=== PATIENT | male | born 1955 | race Caucasian/White ===

== ENCOUNTER → 2016-10-26 | Outpatient (CLI) | payer OTHER ==
[2016-10-26 16:40] LABS: THYROID STIMULATING HORMONE 1.84 uIu/ml (0.300-4.500)
== END | disposition home or self-care (01) ==
LOC: C.LAB1850 15:01
PROVIDERS: ATTEND Physician Assistant
DX: E05.90 Thyrotoxicosis, unspecified without thyrotoxic crisis or storm (principal)

== ENCOUNTER → 2017-01-06 | Outpatient (CLI) | payer OTHER ==
[2017-01-06 16:54] LABS: THYROID STIMULATING HORMONE 1.92 uIu/ml (0.300-4.500)
== END | disposition home or self-care (01) ==
LOC: C.LABPBG 14:51
PROVIDERS: ATTEND Physician Assistant
DX: E05.90 Thyrotoxicosis, unspecified without thyrotoxic crisis or storm (principal)

== ENCOUNTER → 2017-02-17 | Outpatient (CLI) | payer OTHER ==
[2017-02-17 17:30] LABS: THYROID STIMULATING HORMONE 0.096 uIu/ml (0.300-4.500)
== END | disposition home or self-care (01) ==
LOC: C.LABPBG 13:51
PROVIDERS: ATTEND Physician Assistant
DX: E05.90 Thyrotoxicosis, unspecified without thyrotoxic crisis or storm (principal)

== ENCOUNTER → 2017-03-07 | Outpatient (CLI) | payer OTHER ==
[2017-03-07 18:31] LABS: THYROID STIMULATING HORMONE 0.026 uIu/ml (0.300-4.500)
== END | disposition home or self-care (01) ==
LOC: C.LABPBG 14:03
PROVIDERS: ATTEND Internal Medicine
DX: Z11.59 Encounter for screening for other viral diseases (principal); E05.90 Thyrotoxicosis, unspecified without thyrotoxic crisis or storm

== ENCOUNTER → 2017-04-07 | Outpatient (CLI) | payer OTHER ==
[2017-04-07 17:45] LABS: THYROID STIMULATING HORMONE 0.203 uIu/ml (0.300-4.500)
== END | disposition home or self-care (01) ==
LOC: C.LABPBG 14:08
PROVIDERS: ATTEND Physician Assistant
DX: E05.90 Thyrotoxicosis, unspecified without thyrotoxic crisis or storm (principal)

== ENCOUNTER → 2017-04-25 | Outpatient (CLI) | payer OTHER ==
[2017-04-25 18:43] LABS: THYROID STIMULATING HORMONE 1.3 uIu/ml (0.300-4.500)
== END | disposition home or self-care (01) ==
LOC: C.LABPBG 13:55
PROVIDERS: ATTEND Physician Assistant
DX: E05.90 Thyrotoxicosis, unspecified without thyrotoxic crisis or storm (principal)

== ENCOUNTER → 2017-05-25 | Outpatient (CLI) | payer OTHER ==
[2017-05-25 18:05] LABS: THYROID STIMULATING HORMONE 6.94 uIu/ml (0.300-4.500)
== END | disposition home or self-care (01) ==
LOC: C.LABPBG 14:00
PROVIDERS: ATTEND Physician Assistant
DX: E05.90 Thyrotoxicosis, unspecified without thyrotoxic crisis or storm (principal)

== ENCOUNTER → 2017-06-20 | Outpatient (CLI) | payer OTHER ==
[2017-06-20 18:10] LABS: THYROID STIMULATING HORMONE 0.779 uIu/ml (0.300-4.500)
== END | disposition home or self-care (01) ==
LOC: C.LABPBG 13:55
PROVIDERS: ATTEND Physician Assistant
DX: E05.90 Thyrotoxicosis, unspecified without thyrotoxic crisis or storm (principal)

== ENCOUNTER → 2017-07-20 | Outpatient (CLI) | payer OTHER ==
[2017-07-20 17:55] LABS: THYROID STIMULATING HORMONE 0.076 uIu/ml (0.300-4.500)
== END | disposition home or self-care (01) ==
LOC: C.LABPBG 13:57
PROVIDERS: ATTEND Physician Assistant
DX: E05.90 Thyrotoxicosis, unspecified without thyrotoxic crisis or storm (principal)

== ENCOUNTER → 2017-08-25 | Outpatient (CLI) | payer OTHER | END | disposition home or self-care (01) | LOC: C.LABPBG 13:45 | PROVIDERS: ATTEND Physician Assistant | DX: E05.90 Thyrotoxicosis, unspecified without thyrotoxic crisis or storm (principal) ==

== ENCOUNTER → 2017-10-09 | Outpatient (CLI) | payer OTHER | END | disposition home or self-care (01) | LOC: C.LABPBG 13:58 | PROVIDERS: ATTEND Physician Assistant | DX: E05.00 Thyrotoxicosis with diffuse goiter without thyrotoxic crisis or storm (principal) ==

== ENCOUNTER → 2017-11-23 | Outpatient (CLI) | payer OTHER | END | disposition home or self-care (01) | LOC: C.LABPBG 14:10 | PROVIDERS: ATTEND Physician Assistant | DX: E05.00 Thyrotoxicosis with diffuse goiter without thyrotoxic crisis or storm (principal) ==

== ENCOUNTER 2024-01-15 11:44 | Inpatient (IN) ==
--- NOTE | 2024-01-15 11:57 | Emergency Department Note ---
Impression & Plan TIA (transient ischemic attack), Slurred speech, Blood glucose elevated ED Provider Note NAME: ALEENA MILLER AGE: 68 SEX: M : 1955 ARRIVES VIA: Ambulance INFORMANT: Patient ED PROVIDER(S): Karl Corrales DO CHIEF COMPLAINT: slurred speech HPI: This patient is a 68-year-old male who presents to the ER with a past medical history of a CVA affecting left side, Graves' disease and hyperthyroidism who presents to the ER for slurred speech and trouble swallowing which started around 1030 just after getting up. He denies any headache or change in vision. No chest pain or shortness of breath. No new weakness or numbness in the arms or legs. No dysuria urgency or frequency. He admits left arm and left leg weakness which is old and unchanged. Additional history obtained from EMS who is present at bedside who notes that his slurred speech improved significantly during transport. ADDITIONAL HISTORY OBTAINED: Additional history obtained from EMS who is present at bedside who notes that his slurred speech improved significantly during transport. Chronic Medical/Social Conditions Affecting Care: Per HPI PAST MEDICAL HISTORY:See Below PAST SURGICAL HISTORY:See Below FAMILY HISTORY:See Below SOCIAL HISTORY:See Below HOME MEDICATIONS:See Below ALLERGIES:See Below VITALS:See Below PHYSICAL EXAMINATION: GENERAL: Sitting up in bed, alert, well appearing, well nourished, no distress, non-toxic EYE EXAM: normal conjunctiva. PERRL and EOM's grossly intact. OROPHARYNX: no exudate, no erythema, lips, buccal mucosa, and tongue normal and mucous membranes are moist NECK: supple, no nuchal rigidity, no adenopathy, non-tender LUNGS: Clear to auscultation. Normal chest wall mechanics HEART: no murmurs, S1 normal and S2 normal ABDOMEN: abdomen soft, non-tender, normo-active bowel sounds, no masses, no rebound or guarding. BACK: Back is symmetrical on inspection and there is no deformity, no midline tenderness, no CVA tenderness. SKIN: no rashes and no bruising UPPER EXTREMITIES: upper extremities are grossly normal. LOWER EXTREMITIES: No pitting edema. NEURO EXAM: Normal sensorium, cranial nerves II-XII grossly intact, with slightly slurred speech. Weakness of the left upper and left lower extremity which is unchanged from old per patient. No focal weakness in the right upper or right lower extremity. MEDICAL DECISION MAKING: Patient is a 68-year-old male who presents ER for the above-stated complaint. Upon presentation he had slight slurring of his words. Stroke alert was called. I discussed with telestroke evaluate the patient at bedside. Initial blood pressure I do feel was due to poor positioning of the cough as the remainder of the time remained hypotensive. Labs show no significant leukocytosis or anemia. INR unremarkable. BMP with slightly elevated glucose at 157. LFTs bilirubin was unremarkable. Troponin elevated at 96. CTA of the head and neck show no acute pathology with exception of an old stroke. This was discussed with patient and telestroke. They believe with the symptoms improving significantly patient is not a TNK candidate. Did recommend Plavix but patient failed his swallow study due to slurred speech. He was given aspirin rectally. Discussed with the hospitalist and patient was admitted for further workup. Consults/Care Managements Discussions: Per MDM Triage Nursing notes reviewed. Limited review of prior medical records performed Vital Signs: reviewed and remarkable for HTN Differential diagnosis: Differential Diagnosis includes but is not limited to ischemic Stroke, hemorrhagic stroke, bells palsy, mass, neoplasm, migraine headache, seizure, subarachnoid hemorrhage, TIA, and transient global amnesia. ER treatment provided: See below Diagnostics interpreted by me include EKG and cardiac monitoring as listed below: -Cardiac Monitoring: An order was placed for continuous cardiac monitoring. The monitor shows a rate of 60 with sinus rhythm. -ECG: none -Laboratory studies:Interpreted by me as stated above in MDM and shown below. Imaging studies: Xrays: As interpreted by me: Portable AP upright 1 view of the chest shows no focal infiltrate CTs show: CT angios of the head and neck as described below Procedures:none Critical Care: None Past Med/Surg History Problem List (Updated 01/15/24 @ 14:40 by Karl Corrales DO) Blood glucose elevated (Acute) Slurred speech (Acute) TIA (transient ischemic attack) (Acute) Graves disease (Acute) Hyperthyroidism (Acute) Social History Smoking Status: Current every day smoker Feels Safe at Home: Yes Allergies Allergies Allergy/AdvReac Type Severity Reaction Status Date / Time No Known Allergies Allergy Verified 01/15/24 13:34 Home Meds Home Medications Medication Instructions Recorded Confirmed aspirin 325 mg tablet 325 mg PO QAM 10/23/20 01/15/24 citalopram 20 mg tablet 20 mg PO QAM 10/23/20 01/15/24 levetiracetam 500 mg tablet 500 mg PO QAM 10/23/20 01/15/24 lisinopril 5 mg tablet 5 mg PO QPM 10/23/20 01/15/24 metformin 500 mg tablet 500 mg PO QPM 10/23/20 01/15/24 multivit with min-folic 1 tab PO QAM 10/23/20 01/15/24 acid-lutein 400 mcg-250 mcg chewable tablet (Centrum Silver) simvastatin 40 mg tablet 40 mg PO HS 10/23/20 01/15/24 methimazole 5 mg tablet 15 mg PO QAM 01/15/24 01/15/24 Results & Data (ED) Vital Signs Vital Signs - 24 hr 01/15/24 11:50 01/15/24 12:21 01/15/24 12:22 Pulse Rate 62 58 L Pulse Rate [Apical] 61 Pulse Rate from SpO2 Sensor Respiratory Rate 18 18 Blood Pressure 88/61 L Blood Pressure [Right Arm] 187/87 H Blood Pressure Mean 70 Blood Pressure Mean [Right Arm] 120 Pulse Oximetry 97 97 Oxygen Delivery Method Room Air Sepsis Recent Fever Within 48 Hours No Sepsis New/Unexplained Change in Mental Status No Sepsis Action Taken by Nursing No Action Required 01/15/24 12:30 01/15/24 12:33 01/15/24 13:09 Pulse Rate 54 L 58 L Pulse Rate [Apical] Pulse Rate from SpO2 Sensor 54 L Respiratory Rate 20 18 Blood Pressure 194/88 H Blood Pressure [Right Arm] Blood Pressure Mean 132 Blood Pressure Mean [Right Arm] Pulse Oximetry 98 Oxygen Delivery Method Sepsis Recent Fever Within 48 Hours Sepsis New/Unexplained Change in Mental Status Sepsis Action Taken by Nursing 01/15/24 13:15 01/15/24 13:39 Pulse Rate 56 L Pulse Rate [Apical] Pulse Rate from SpO2 Sensor Respiratory Rate 26 H Blood Pressure 194/76 H Blood Pressure [Right Arm] Blood Pressure Mean 113 Blood Pressure Mean [Right Arm] Pulse Oximetry Oxygen Delivery Method Sepsis Recent Fever Within 48 Hours Sepsis New/Unexplained Change in Mental Status Sepsis Action Taken by Nursing Laboratory Data 01/15/24 12:08 01/15/24 12:08 Lab Results 01/15/24 01/15/24 Range/Units 12:08 12:13 WBC 9.49 (4.8-10.8) K/ul RBC 4.68 L (4.70-6.10) M/uL Hgb 13.4 L (14.0-18.0) g/dl Hct 40.8 L (42.0-52.0) % MCV 87.2 (80.0-100.0) fL MCH 28.6 (25.0-34.0) pg MCHC 32.8 (32.0-36.0) g/dL RDW Std Deviation 42.4 (36.4-46.3) fL RDW Coeff of Lesly 13.4 (11.5-14.5) % Plt Count 277 (130-400) K/uL MPV 11.8 (9.4-12.4) fL Immature Gran % (Auto) 0.3 % Neut % (Auto) 67.9 % Lymph % (Auto) 21.2 % Eagle % (Auto) 7.7 % Eos % (Auto) 2.1 % Baso % (Auto) 0.8 % Neut # (Auto) 6.44 (1.40-6.50) K/uL Lymph # (Auto) 2.01 (1.20-3.40) K/uL Eagle # (Auto) 0.73 H (0.11-0.59) K/uL Eos # (Auto) 0.20 (0.00-0.50) K/uL Baso # (Auto) 0.08 (0.00-0.20) K/uL Immature Gran # (Auto) 0.03 (0.01-0.20) K/uL PT 11.1 (9.0-12.0) Seconds INR 1.0 (0.9-1.1) APTT 28 (21-31) Seconds PTT Ratio 1.0 Sodium 134 L (136-145) mmol/L Potassium 4.4 (3.5-5.1) mmol/L Chloride 104 (98-107) mmol/L Carbon Dioxide 26 (21-32) mmol/L Anion Gap 4 (3-11) BUN 12 (6-23) mg/dl Creatinine 0.77 (0.6-1.4) mg/dl Est Cr Clr Drug Dosing 83.5 ml/min Est GFR ( Amer) 106.6 ml/min Est GFR (Non-Af Amer) 91.9 ml/min BUN/Creatinine Ratio 15.6 (10-20) Glucose 152 H (70-99(Fasting)) mg/dl POC Glucose 156 H (70-99) mg/dl Calcium 9.4 (8.6-10.3) mg/dl Magnesium 1.8 (1.7-2.4) mg/dl Total Bilirubin 0.4 (0.2-1.0) mg/dl AST 14 (13-39) U/L ALT 13 (7-52) U/L Alkaline Phosphatase 87 (34-104) U/L Troponin I High Sens 96.2 H* (0-20) pg/ml Total Protein 7.2 (6.0-8.3) gm/dl Albumin 3.4 (3.4-5.0) gm/dl Globulin 3.8 (2.5-4.0) gm/dl Albumin/Globulin Ratio 0.9 (0.9-2) Administered Medications Discontinued Medications Sodium Chloride (Nss) 1,000 mls @ 999 mls/hr IV .Q1H1M ONE Stop: 01/15/24 12:58 Last Admin: 01/15/24 12:24 Dose: 999 mls/hr Documented By: HS Sodium Chloride (Nss) 1,000 mls @ 999 mls/hr IV .Q1H1M ONE Stop: 01/15/24 13:21 Last Admin: 01/15/24 12:24 Dose: 999 mls/hr Documented By: HS Ioversol (Optiray 320 125ml) 120 ml IV ONCE ONE Stop: 01/15/24 12:06 Last Admin: 01/15/24 12:05 Dose: 120 ml Documented By: HONG Imaging Data Radiologist's Impression: Chest X-Ray 01/15/24 11:52 XR chest 1V portable CLINICAL HISTORY: neuro deficit, acute stroke suspected TECHNIQUE: Single frontal radiograph of the chest was obtained. Comparison: None available at the time of this dictation. FINDINGS: No lines and tubes are seen. Calcified aortic knob is seen. The lungs are clear. No evidence of pleural effusion or pneumothorax. IMPRESSION: No acute chest disease. ACT 112: Negative or not required by law. Electronically signed by: Jason Garvey M.D. 01/15/2024 1:[address] 01/15/24 11:52 CT head/brain wo con CLINICAL HISTORY: 68 years-old Male with neuro deficit, acute stroke suspected. Acute strokelike symptoms TECHNIQUE: Multiple axial CT images of the head were obtained without contrast. A dose lowering technique was utilized adhering to the principles of ALARA. COMPARISON: CTA head and neck of same day FINDINGS: No acute intracranial hemorrhage, midline shift, intracranial mass, hydrocephalus, territorial ischemia or abnormal extra-axial collection. Involutional changes with chronic microvascular ischemic disease. There is a large area of encephalomalacia compatible with a chronic right MCA territorial infarct. Ex vacuo ventricular megaly the right lateral ventricle. Additional encephalomalacia involve the bilateral parieto-occipital lobes. The calvarium is intact. The paranasal sinuses, mastoid air cells, and middle ear cavities are clear. IMPRESSION: 1. No acute intracranial hemorrhage or midline shift. 2. Encephalomalacia from chronic infarcts including a large chronic right MCA territorial infarct. ACT 112: Negative or not required by law. The above report was generated using voice recognition software. It may contain grammatical, syntax or spelling errors. Electronically signed by: Brian Mesa M.D. 01/15/2024 12:31 PM Head CTA 01/15/24 11:52 CT angio head w con CLINICAL HISTORY: neuro deficit, acute stroke suspected TECHNIQUE: CT angiography of the head was performed following intravenous administration of iodinated contrast. Coronal and sagittal MIPS were obtained from the axial data set and were submitted for review. Automated dose lowering techniques and/or adjustment according to patient size were utilized for this examination. All measurements were calculated based on NASCET criteria. CT DOSE: 1191.73 mGy.cm Comparison: Comparison is made to CT head 01/15/2024 FINDINGS: CTA Head: The anterior and posterior cerebral circulations are patent. Right- sided carotid circulation is supplied from the left. IMPRESSION: No occlusion, hemodynamically significant stenosis, aneurysm, dissection, or arteriovenous malformation in the major intracranial arteries. The right sided anterior and middle cerebral arteries are supplied from the left carotid artery. Encephalomalacia from old infarct is seen on the right. Assessment of stenosis of the internal carotid arteries is based on NASCET criteria. ACT 112: Negative or not required by law. Electronically signed by: Jason Garvey M.D. 01/15/2024 12:36 PM Neck CTA 01/15/24 11:52 CT ANGIOGRAM OF THE NECK CLINICAL HISTORY: Neurological deficit. Stroke like symptoms. Slurred speech. COMPARISON STUDY: No priors. TECHNIQUE: Following the IV administration of 120 of Optiray 320, CT angiogram of the neck was performed from the aortic arch to the skull base. Images are reviewed in the axial, sagittal, and coronal planes. 3-D MIPS images are created and assessed. IV contrast was administered without complication. All measurements were calculated based on NASCET criteria. A dose lowering technique was utilized adhering to the principles of ALARA. FINDINGS: Thoracic aorta: There is atherosclerotic calcification of the thoracic aorta. Visualized portions of the thoracic aorta are normal in caliber. The aortic arch demonstrates standard 3-vessel anatomy. Right carotid arterial system: The right common carotid artery is widely patent noting atherosclerotic plaque and irregularity. The left external carotid artery is widely patent. There is complete thrombosis at the origin of the right internal carotid artery. The vessel is thrombosed to the skull base. Left carotid arterial system: The left common carotid artery is patent noting advanced atherosclerotic plaque and irregularity. There is less than 50% focal stenosis of the mid left common carotid artery seen on axial image #179. The vessels otherwise widely patent. There is advanced atherosclerotic calcification in the left carotid bulb. This causes approximately 50-65% focal stenosis at the origin of the left internal carotid artery seen on axial image #244. The mid to distal left internal carotid artery is widely patent, as is the left external carotid artery. Vertebral arteries: There is mild focal stenosis at the origin of the right vertebral artery. The vertebral arteries are otherwise widely patent bilaterally noted right-sided dominance. Subclavian arteries: There is moderate to high-grade focal stenosis of the left subclavian artery below the thoracic inlet seen on axial image #76. The subclavian arteries are otherwise widely patent bilaterally. Intracranial vasculature: There is trace reconstitution of flow within the distal right internal carotid artery below the [place] of [place] via retrograde flow. Intracranial vessels at the skull base are otherwise widely patent. Jugular veins: Patent bilaterally. Brain parenchyma: Right temporal lobe encephalomalacia is partially imaged. Lung apices: There is a 5 mm pleural-based nodule in the left upper lobe seen on image #14. Partially visualized upper lobe lung parenchyma otherwise appears clear. Soft tissues: The visualized pharyngeal soft tissues are normal in appearance noting angiographic phase technique. The oropharyngeal airway appears widely patent. The thyroid gland is enlarged and heterogeneous. There is an 8 mm enhancing nodule within the right parotid gland. The salivary glands are otherwise normal in appearance. No cervical lymphadenopathy is seen. Skeletal structures: The skeletal structures are osteopenic. The visualized calvarium at the skull base appears intact. The imaged cervical spine is maintained noting mild spondylosis. Sinuses and mastoids: There is mild mucosal thickening within the ethmoid sinuses on the right maxillary antrum. The mastoid air cells are well pneumatized. IMPRESSION: 1. 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 This extends from the carotid bifurcation to the skull base. Given findings of right temporal lobe encephalomalacia this may be chronic. Correlate clinically. 2. There is approximately 50% focal stenosis of the mid left common carotid artery. 3. There is 50-65% focal stenosis of the proximal left internal carotid artery. 4. There is moderate to severe focal stenosis of the left subclavian artery below the thoracic outlet. Note that this may place the patient at risk for steal phenomenon. 5. There is a 5 mm pleural-based nodule in the left upper lobe. Correlate with any prior outside imaging studies to assess for chronicity. If warranted this can be followed followed with a dedicated chest CT in 3-6 months time. 6. There is an 8 mm enhancing nodule in the right parotid gland. Nonemergent ultrasound is recommended in follow-up. ACT 112: Negative or not required by law. Electronically signed by: Jose Chester M.D. 01/15/2024 12:22 PM Discharge Plan Visit Data Chief Complaint: TIA Symptoms Stated Complaint: TIA SX ED Provider: Karl Corrales Discharge Problem: TIA (transient ischemic attack), Slurred speech, Blood glucose elevated Forms Stand Alone Forms: My [facility] [place] [facility] Prescriptions Prescriptions: No Action levetiracetam 500 mg tablet 500 mg PO QAM simvastatin 40 mg tablet 40 mg PO HS citalopram 20 mg tablet 20 mg PO QAM Centrum Silver 400-250 mcg tablet,chewable 1 tab PO QAM aspirin 325 mg tablet 325 mg PO QAM lisinopril 5 mg tablet 5 mg PO QPM metformin 500 mg tablet 500 mg PO QPM methimazole 5 mg tablet 15 mg PO QAM Referrals Referrals: Darinel Rajput [Primary Care Provider] -
[2024-01-15] MEDS: OPTIRAY 320 125ml IV ONE (12:05)
[2024-01-15] MEDS: SODIUM CHLORIDE 0.9% 1,000 ML IV ONE ×2 (12:24)
--- NOTE | 2024-01-15 12:24 | CT Scan Report ---
CT ANGIOGRAM OF THE NECK CLINICAL HISTORY: Neurological deficit. Stroke like symptoms. Slurred speech. COMPARISON STUDY: No priors. TECHNIQUE: Following the IV administration of 120 of Optiray 320, CT angiogram of the neck was perfor med from the aortic arch to the skull base. Images are reviewed in the axial, sagittal, and coronal p lanes. 3-D MIPS images are created and assessed. IV contrast was administered without complication. A ll measurements were calculated based on NASCET criteria. A dose lowering technique was utilized adh ering to the principles of ALARA. FINDINGS: Thoracic aorta: There is atherosclerotic calcification of the thoracic aorta. Visualized portions of the thoracic aorta are normal in caliber. The aortic arch demonstrates standard 3-vessel anatomy. Right carotid arterial system: The right common carotid artery is widely patent noting atheroscleroti c plaque and irregularity. The left external carotid artery is widely patent. There is complete throm bosis at the origin of the right internal carotid artery. The vessel is thrombosed to the skull base. Left carotid arterial system: The left common carotid artery is patent noting advanced atheroscleroti c plaque and irregularity. There is less than 50% focal stenosis of the mid left common carotid arter y seen on axial image #179. The vessels otherwise widely patent. There is advanced atherosclerotic ca lcification in the left carotid bulb. This causes approximately 50-65% focal stenosis at the origin o f the left internal carotid artery seen on axial image #244. The mid to distal left internal carotid artery is widely patent, as is the left external carotid artery. Vertebral arteries: There is mild focal stenosis at the origin of the right vertebral artery. The vivi tebral arteries are otherwise widely patent bilaterally noted right-sided dominance. Subclavian arteries: There is moderate to high-grade focal stenosis of the left subclavian artery bel ow the thoracic inlet seen on axial image #76. The subclavian arteries are otherwise widely patent bi laterally. Intracranial vasculature: There is trace reconstitution of flow within the distal right internal [place] tid artery below the [place] of [place] via retrograde flow. Intracranial vessels at the skull base are otherwise widely patent. Jugular veins: Patent bilaterally. Brain parenchyma: Right temporal lobe encephalomalacia is partially imaged. Lung apices: There is a 5 mm pleural-based nodule in the left upper lobe seen on image #14. Partially visualized upper lobe lung parenchyma otherwise appears clear. Soft tissues: The visualized pharyngeal soft tissues are normal in appearance noting angiographic pha se technique. The oropharyngeal airway appears widely patent. The thyroid gland is enlarged and heter ogeneous. There is an 8 mm enhancing nodule within the right parotid gland. The salivary glands are o therwise normal in appearance. No cervical lymphadenopathy is seen. Skeletal structures: The skeletal structures are osteopenic. The visualized calvarium at the skull ba se appears intact. The imaged cervical spine is maintained noting mild spondylosis. Sinuses and mastoids: There is mild mucosal thickening within the ethmoid sinuses on the right maxill brendan antrum. The mastoid air cells are well pneumatized. IMPRESSION: 1. 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 This exte nds from the carotid bifurcation to the skull base. Given findings of right temporal lobe encephaloma lacia this may be chronic. Correlate clinically. 2. There is approximately 50% focal stenosis of the mid left common carotid artery. 3. There is 50-65% focal stenosis of the proximal left internal carotid artery. 4. There is moderate to severe focal stenosis of the left subclavian artery below the thoracic outlet . Note that this may place the patient at risk for steal phenomenon. 5. There is a 5 mm pleural-based nodule in the left upper lobe. Correlate with any prior outside imag ing studies to assess for chronicity. If warranted this can be followed followed with a dedicated lana st CT in 3-6 months time. 6. There is an 8 mm enhancing nodule in the right parotid gland. Nonemergent ultrasound is recommende d in follow-up. ACT 112: Negative or not required by law. Electronically signed by: Jose Chester M.D. 01/15/2024 12:22 PM
[2024-01-15 12:28] LABS: Basophils # (auto) 0.08 K/uL (0.00-0.20); Basophils % (auto) 0.8 %; Eosinophils % (auto) 2.1 %; Hematocrit (blood only) 40.8 % (42.0-52.0); Hemoglobin 13.4 g/dl (14.0-18.0); Immature Granulocytes # (auto) 0.03 K/uL (0.01-0.20); Immature Granulocytes % (auto) 0.3 %; Lymphocytes # (auto) 2.01 K/uL (1.20-3.40); Lymphocytes % (auto) 21.2 %; Mean Corpuscular Hemoglobin 28.6 pg (25.0-34.0); Mean Corpuscular Hgb Conc 32.8 g/dL (32.0-36.0); Mean Corpuscular Volume 87.2 fL (80.0-100.0); Mean Platelet Volume 11.8 fL (9.4-12.4); Monocytes # (auto) 0.73 K/uL (0.11-0.59); Monocytes % (auto) 7.7 %; Neutrophils # (auto) 6.44 K/uL (1.40-6.50); Neutrophils % (auto) 67.9 %; Platelet Count 277 K/uL (130-400); RDW Coefficient of Variation 13.4 % (11.5-14.5); RDW Standard Deviation 42.4 fL (36.4-46.3); Red Blood Count 4.68 M/uL (4.70-6.10); White Blood Count 9.49 K/ul (4.8-10.8)
--- NOTE | 2024-01-15 12:32 | CT Scan Report ---
CT head/brain wo con CLINICAL HISTORY: 68 years-old Male with neuro deficit, acute stroke suspected. Acute strokelike sym ptoms TECHNIQUE: Multiple axial CT images of the head were obtained without contrast. A dose lowering tech nique was utilized adhering to the principles of ALARA. COMPARISON: CTA head and neck of same day FINDINGS: No acute intracranial hemorrhage, midline shift, intracranial mass, hydrocephalus, territorial ischem ia or abnormal extra-axial collection. Involutional changes with chronic microvascular ischemic disea se. There is a large area of encephalomalacia compatible with a chronic right MCA territorial infarct . Ex vacuo ventricular megaly the right lateral ventricle. Additional encephalomalacia involve the bi lateral parieto-occipital lobes. The calvarium is intact. The paranasal sinuses, mastoid air cells, and middle ear cavities are clear . IMPRESSION: 1. No acute intracranial hemorrhage or midline shift. 2. Encephalomalacia from chronic infarcts including a large chronic right MCA territorial infarct. ACT 112: Negative or not required by law. The above report was generated using voice recognition software. It may contain grammatical, syntax o r spelling errors. Electronically signed by: Brian Mesa M.D. 01/15/2024 12:31 PM
--- NOTE | 2024-01-15 12:38 | CT Scan Report ---
CT angio head w con CLINICAL HISTORY: neuro deficit, acute stroke suspected TECHNIQUE: CT angiography of the head was performed following intravenous administration of iodinate d contrast. Coronal and sagittal MIPS were obtained from the axial data set and were submitted for re view. Automated dose lowering techniques and/or adjustment according to patient size were utilized f or this examination. All measurements were calculated based on NASCET criteria. CT DOSE: 1191.73 mGy.cm Comparison: Comparison is made to CT head 01/15/2024 FINDINGS: CTA Head: The anterior and posterior cerebral circulations are patent. Right-sided carotid circulati on is supplied from the left. IMPRESSION: No occlusion, hemodynamically significant stenosis, aneurysm, dissection, or arteriovenous malformati on in the major intracranial arteries. The right sided anterior and middle cerebral arteries are supp lied from the left carotid artery. Encephalomalacia from old infarct is seen on the right. Assessment of stenosis of the internal carotid arteries is based on NASCET criteria. ACT 112: Negative or not required by law. Electronically signed by: Jason Garvey M.D. 01/15/2024 12:36 PM
[2024-01-15 12:39] LABS: Partial Thromboplastin Time 28 Seconds (21-31); Prothrombin Time 11.1 Seconds (9.0-12.0)
[2024-01-15 12:54] LABS: Albumin Globulin Ratio 0.9 (0.9-2); Albumin Level 3.4 gm/dl (3.4-5.0); BUN Creatinine Ratio 15.6 (10-20); Bilirubin,Total 0.4 mg/dl (0.2-1.0); Calcium 9.4 mg/dl (8.6-10.3); Creatinine Clr Calc Pharmacy 83.5 ml/min; Est GFR (African American) 106.6 ml/min; Est GFR (Non-African American) 91.9 ml/min; Globulin 3.8 gm/dl (2.5-4.0); Magnesium 1.8 mg/dl (1.7-2.4); Potassium 4.4 mmol/L (3.5-5.1); Total Protein 7.2 gm/dl (6.0-8.3)
[2024-01-15 13:04] LABS: Troponin I High Sensitivity 96.2 pg/ml (0-20)
--- NOTE | 2024-01-15 13:14 | XRay Report ---
XR chest 1V portable CLINICAL HISTORY: neuro deficit, acute stroke suspected TECHNIQUE: Single frontal radiograph of the chest was obtained. Comparison: None available at the time of this dictation. FINDINGS: No lines and tubes are seen. Calcified aortic knob is seen. The lungs are clear. No evidence of pleur al effusion or pneumothorax. IMPRESSION: No acute chest disease. ACT 112: Negative or not required by law. Electronically signed by: Jason Garvey M.D. 01/15/2024 1:13 PM
[2024-01-15] MEDS ORDERED: POLYETHYLENE (MIRALAX) 17 GM PACK PO PRN (14:58)
[2024-01-15] MEDS ORDERED: ACETAMINOPHEN 325 MG TAB PO PRN (14:58)
[2024-01-15] MEDS ORDERED: ONDANSETRON INJ 2 MG/ML 2 ML VIAL IV PRN (14:58)
[2024-01-15] MEDS ORDERED: ALUMINUM/MAGNESIUM SUSP 30 ML UDC PO PRN (14:58)
[2024-01-15] MEDS ORDERED: GLUCOSE 10 TAB/TUBE PO PRN (15:01)
[2024-01-15] MEDS ORDERED: DEXTROSE 50% 50 ML SYRINGE IV PRN (15:01)
[2024-01-15] MEDS ORDERED: PHARMACY GLYCEMIC MGMT CONSULT PRN (15:01)
[2024-01-15] MEDS ORDERED: GLUCOSE 40% GEL 15 GM TUBE PO PRN (15:01)
[2024-01-15] MEDS ORDERED: GLUCAGON FOR INJ 1 MG VIAL SQ PRN (15:01)
[2024-01-15] MEDS ORDERED: CARBOHYDRATES FOR HYPOGLYCEMIA PO PRN (15:01)
--- NOTE | 2024-01-15 15:17 | History & Physical Report ---
Date of Service January 15, 2024 Assessment & Plan (1) Slurred speech: Plan Strokelike symptoms Patient coming along with slurring of speech and feeling poorly, which is improved by the time of bedside examination. Patient felt swallow eval, PT/OT/speech consult. A1c and lipid panel in AM. ECH Oand mri brain ordered. Will put him on aspirin 300 mg MS daily until DAPT can be resumed p.o. Hold statin until p.o. medication can be resumed. Hold blood pressure medications today, will put him on as needed hydralazine with SBP goal greater than 180 mmHg today. Hydralazine to be given when blood pressure is greater than 190 mmHg, nursing to inform MD if they cannot use hydralazine due to given parameter when still blood pressure is greater than 190 mmHg. Abn CTA neck imaging, await neuro input for recs. DEEDEE nodule in CTA neck: f/u CT chest in 3-6 months. Other chronic medical conditions: HTN, HLD, hypothyroidism: Continue/resume home meds as and when able. When patient is able to take p.o. Currently n.p.o. Heparin for DVT prophylaxis Full code History of Present Illness Chief Complaint: Strokelike symptoms Primary Care Provider: Darinel Rajput 68-year-old male with PMH of T2DM, hyperthyroidism, HLD, HTN presented to the ED with complaint of strokelike symptoms. Patient has a history of CVA affecting left side, Graves' disease. He comes in with feeling poorly starting this a.m., could not swallow/could not talk/slurring of speech. Per EMS his slurring of his speech improved in the route to the hospital. He denies any new focal weakness of his arms and limbs. 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 Denied any numbness or tingling. Patient denies any fever/cough/sore throat/chest pain/belly pain/acute changes in his bowel or bladder habits. Patient reports improvement in his symptoms significantly including slurring of speech. Patient reports being chronic smoker, reports smoking currently half packs in a week, denies alcohol use and recreational drug use. Full code, power of contracts attorney patient's son Matti. Medications revieiwed with patient and her sister at bedside in detail. Plan of care discussed with patient and his sister and son at bedside in detail. They voiced understanding and were agreeable to plan of care. Allergies Allergy/AdvReac Type Severity Reaction Status Date / Time No Known Allergies Allergy Verified 01/15/24 13:34 Home Medications Medication Instructions Recorded Confirmed Type aspirin 325 mg tablet 325 mg PO QAM 10/23/20 01/15/24 History citalopram 20 mg tablet 20 mg PO QAM 10/23/20 01/15/24 History levetiracetam 500 mg tablet 500 mg PO QAM 10/23/20 01/15/24 History lisinopril 5 mg tablet 5 mg PO QPM 10/23/20 01/15/24 History metformin 500 mg tablet 500 mg PO QPM 10/23/20 01/15/24 History multivit with min-folic 1 tab PO QAM 10/23/20 01/15/24 History acid-lutein 400 mcg-250 mcg chewable tablet (Centrum Silver) simvastatin 40 mg tablet 40 mg PO HS 10/23/20 01/15/24 History methimazole 5 mg tablet 15 mg PO QAM 01/15/24 01/15/24 History Past Med/Surg History Problem List (Updated 01/15/24 @ 14:40 by Karl Corrales DO) Blood glucose elevated (Acute) Slurred speech (Acute) TIA (transient ischemic attack) (Acute) Graves disease (Acute) Hyperthyroidism (Acute) Social History Smoking Status: Current every day smoker Feels Safe at Home: Yes Review of Systems Review of Systems: Negative otherwise mentioned in HPI. Physical Exam Physical Exam: GENERAL: Alert and oriented x3. NAD, on RA. HEENT: No pallor, no icterus. Pupils equal, round and reactive to light. Oral mucosa moist. NECK: No JVD, no neck masses. HEART: S1 and S2 heard. Regular rate and rhythm. No murmur, no gallop. RESPIRATORY SYSTEM: Normal AP diameter. No accessory muscle use. No wheezing, no crackles. ABDOMEN: Soft, bowel sounds present, nontender, no distention. CENTRAL NERVOUS SYSTEM: Speech is clear. Obeys simple commands. Moves extremities. left paresis noted. lue contracture noted. EXTREMITIES: No edema, no erythema seen. Results & Data Results & Data Vital Signs (Past 12 Hours) Vital Signs Pulse Pulse Resp BP BP Pulse Ox O2 Del Method 01/15/24 13:39 56 L 26 H 01/15/24 13:15 194/76 H 01/15/24 13:09 58 L 18 01/15/24 12:33 54 L 20 98 01/15/24 12:30 194/88 H 01/15/24 12:22 61 18 187/87 H 97 01/15/24 12:21 58 L 01/15/24 11:50 62 18 88/61 L 97 Room Air
[2024-01-15] MEDS: ASPIRIN 300 MG SUPP PR ONE (16:26)
[2024-01-15] MEDS: INSULIN ASPART PER UNIT CHARGE SC SCH (18:10)
--- NOTE | 2024-01-15 18:26 | Magnetic Resonance Report ---
MRI OF THE BRAIN COMBO CLINICAL HISTORY: Slurred speech. Dysphagia. Stroke like symptoms. COMPARISON STUDY: CT of the brain performed the same day 01/15/2024. TECHNIQUE: MRI of the brain was performed utilizing various T1 and T2-weighted sequences in the axial , sagittal, and coronal planes. Contrast-enhanced sequences were acquired following the administratio n of 7 cc of Gadavist. FINDINGS: Brain parenchyma: There are at least 4 subcentimeter foci of restricted diffusion identified in the l eft frontal, temporal, and parietal lobe cortex consistent with foci of acute to subacute ischemia. 1 extravasation is nonspecific postcontrast enhancement. No foci of restricted diffusion are seen with in the right hemisphere. There is no hemorrhage or mass effect. Right MCA territory encephalomalacia is consistent with a remote infarct. There are foci of hemosiderin deposition within the right MCA te rritory, likely related to old blood products. There is [id number] microcatheter hepatic change . No enhancing mass lesion is identified on the postcontrast images. No extra-axial fluid collection is seen. The cerebellar tonsils are normal in configuration. Ventricles, sulci, and cisterns: Prominent secondary to involutional change. There is ex vacuo dilata tion of the right lateral ventricle. Pituitary and sella: Unremarkable. Intracranial vasculature: There is loss of the right internal carotid artery flow-void at the skull b ase 3 there are many phleboliths the skull base are maintained. Orbits: The bony orbits are grossly intact. Orbital contents are normal in appearance noting bilatera l ocular lens implants. Sinuses and mastoids: Mild mucosal thickening is noted within the ethmoid and frontal sinuses. The ma stoid air cells are clear. Calvarium: Unremarkable. Cervical cord: Partially visualized cervical spinal cord is normal in morphology and signal intensity . IMPRESSION: 1. There are at least 4 subcentimeter foci of restricted diffusion scattered throughout the left-side d cortex as above. These are consistent with small foci of acute to subacute ischemia, and the distri bution favors an embolic phenomenon. 2. There is no hemorrhage or mass effect. 3. There is loss of the right internal carotid artery flow void at the skull base and right MCA bayron tory encephalomalacia consistent with a remote stroke. 4. Additional findings as above. ACT 112: Negative or not required by law. Electronically signed by: Jose Chester M.D. 01/15/2024 6:23 PM
[2024-01-15] MEDS: HEPARIN SOD 5,000 UNIT/0.5 ML VIAL SQ SCH (21:05)
[2024-01-15] MEDS: LANTUS PER UNIT CHARGE SC SCH (22:50)
[2024-01-15] MEDS: hydrALAZINE HCL 20 MG/ML VIAL IV PRN (22:57)
[2024-01-16 02:27] LABS: BUN Creatinine Ratio 13.9 (10-20); Calcium 9.8 mg/dl (8.6-10.3); Chol HDL Ratio 4.8 (0-5); Creatinine Clr Calc Pharmacy 81.3 ml/min; Est GFR (African American) 105.4 ml/min; Magnesium 1.8 mg/dl (1.7-2.4); Phosphorus 3.3 mg/dl (2.5-4.9)
[2024-01-16 02:38] LABS: Troponin I High Sensitivity 123.1 pg/ml (0-20)
[2024-01-16 03:01] LABS: Hemoglobin 14.5 g/dl (14.0-18.0); Mean Corpuscular Hemoglobin 29.1 pg (25.0-34.0); Mean Corpuscular Hgb Conc 33.7 g/dL (32.0-36.0); Mean Corpuscular Volume 86.2 fL (80.0-100.0); Mean Platelet Volume 13.2 fL (9.4-12.4); Platelet Count 281 K/uL (130-400); RDW Coefficient of Variation 13.3 % (11.5-14.5); RDW Standard Deviation 41.2 fL (36.4-46.3); Red Blood Count 4.99 M/uL (4.70-6.10); White Blood Count 10.17 K/ul (4.8-10.8)
[2024-01-16 07:03] LABS: Estimated Average Glucose 189 mg/dl; Hemoglobin A1C 8.2 % (4.5-5.6)
[2024-01-16] MEDS: ASPIRIN 300 MG SUPP PR SCH (08:14)
--- NOTE | 2024-01-16 10:15 | Pharmacy Report ---
Pharmacy Glycemic Short Note 2 - Date of Service January 16, 2024 - Glycemic Short BSG Results (Last 24 hours): 01/15/24 01/15/24 01/15/24 12:08 12:13 18:07 Glucose 152 H POC Glucose 156 H 115 H 01/15/24 01/16/24 01/16/24 20:12 00:03 01:47 Glucose 115 H POC Glucose 116 H 126 H 01/16/24 05:44 Glucose POC Glucose 116 H OUTPATIENT ANTIDIABETIC REGIMEN: * Metformin 500 mg PO AM * HbA1c: 8.9% (12/26/23) ASSESSMENT: * 68 yo m admitted on 01/15/24 secondary to stroke-like symptoms. Pharmacy has been consulted to assist with inpatient glycemic management. Patient is a Type 2 diabetic as an outpatient. Please refer to outpatient regimen and most recent HbA1c above. * BSGs yesterday were 156-115-116 mg/dL. Patient was ordered basal and bolus insulin last night but received none. Was NPO until this morning, but now ordered a T2DM diet. * Fasting BSG was 116 mg/dL this AM. Continue with previously ordered basal regimen. Tightened goal range and correctional/prandial insulin for diet being ordered. PLAN FOR INPATIENT GLYCEMIC CONTROL: * Hold outpatient oral diabetes medications * Basal insulin * Lantus 0-5 units SC BID * Bolus insulin * NovoLog per scale ACHS or Q6hrs while NPO * Goal Range: Low 110 mg/dL - High 140 mg/dL * Correction Factor: 35 mg/dL/unit * Nutritional / Prandial insulin per carb ratio of 1 unit per 11 grams CHO consumed
--- NOTE | 2024-01-16 10:25 | Neurology Consultation ---
Date of Consultation January 16, 2024 Assessment & Plan (1) Stenosis of left internal carotid artery with cerebral infarction: Mian Sanchez presents with symptomatic L ICA stenosis in the setting of a large prior R MCA stroke. As he is independent and recovered well from his R MCA stroke we discussed that there may be surgical options for his L ICA stenosis which has become symptomatic. In the meantime would continue with aspirin and plavix and high intensity statin for maximal medical therapy while vascular surgery is consulted. -- Aspirin 81mg daily, plavix 75mg daily -- Switch to lipitor 80mg daily -- Vascular surgery consult -- Neurology follow-up in 2-3 weeks Telehealth Consultation Telehealth Information Telehealth Information: I performed this visit using a real-time telehealth connection between my location and the patients location ([facility]). After connecting through interactive tele-video, patient was identified by name and date of and/or wristband check.Patient (or authorized healthcare registration representative) was informed that this was a telemedicine visit and it was being conducted confidentially over secure lines. My office door was closed and no one else was present in the room with me.Patient (or authorized healthcare registration representative) provided consent to proceed with the visit, expressed an understanding of privacy and security of the telemedicine visit, and gave permission to have a hospital registration representative in the room in order to assist with the visit and to conduct portions of the visit, as needed. I informed the patient (or authorized healthcare registration representative) that I reviewed their record and presented the opportunity for them to ask any questions regarding the visit today. The patient agreed to participate. History of Present Illness Reason for Consultation: Stroke Requesting Physician: Dr. Siu Attending Physician: Vidal Siu MD History of Present Illness Mian Sanchez is a 68 yo M presenting with transient slurred speech yesterday. The patient lives alone and has learned to be independent after his large R MCA stroke secondary to R ICA occlusion in 2009. He has a history of seizures after his last stroke on Keppra but can not recall when his last seizure occurred. He does not think he had a seizure yesterday. Otherwise denies any symptoms today or recurrence of his slurred speech. He has not had any interval strokes he is aware of since the 2010 stroke. Allergies Allergy/AdvReac Type Severity Reaction Status Date / Time No Known Allergies Allergy Verified 01/15/24 13:34 Home Medications Medication Instructions Recorded Confirmed Type aspirin 325 mg tablet 325 mg PO QAM 10/23/20 01/15/24 History citalopram 20 mg tablet 20 mg PO QAM 10/23/20 01/15/24 History levetiracetam 500 mg tablet 500 mg PO QAM 10/23/20 01/15/24 History lisinopril 5 mg tablet 5 mg PO QPM 10/23/20 01/15/24 History metformin 500 mg tablet 500 mg PO QPM 10/23/20 01/15/24 History multivit with min-folic 1 tab PO QAM 10/23/20 01/15/24 History acid-lutein 400 mcg-250 mcg chewable tablet (Centrum Silver) simvastatin 40 mg tablet 40 mg PO HS 10/23/20 01/15/24 History methimazole 5 mg tablet 15 mg PO QAM 01/15/24 01/15/24 History Patient History Social History Smoking Status: Current every day smoker Tobacco Type: Cigarettes Cigarettes Per Day: 5-6; Second Hand Exposure: No; Do You Dip or Chew Tobacco: No; Tobacco Cessation Education Requested by Patient: No Hx Alcohol Use: No Hx Substance Use: No Preferred Language: Kiswahili Communication Ability: Effective Wax Bleacher Required: No Beliefs That Will Affect Care: None Current Living Situation: Alone Other Information That Helps Us Care for You: No Feels Safe at Home: Yes Safety Concerns: Feels Safe At This Time Assistive Devices: Walker Review of Systems +Slurred speech, resolved Physical Exam Neurological Examination: Mental Status: Awake and alert. Oriented to person, place, and time. Fluent. Comprehension intact. Affect appropriate. Cranial Nerves: II: Reads NIHSS cards, pupils 3/3 to 2/2, [place] grossly intact. III/IV/: Versions intact without nystagmus, no gaze preference. V: Facial sensation symmetric to light touch VII: Facial expression reduced on the L VIII: Hearing intact to voice IX/X: Palate elevates symmetrically Motor: Strength was symmetric and antigravity on the R, minimal movement with contractures on the L Sensory: Sensation to light touch was intact. Coordination: Finger to nose was intact. Reflexes: Unable to assess over telemedicine Results & Data Vital Signs (Past 12 Hours) Vital Signs Temp Pulse Resp BP Pulse Ox O2 Del Method 01/16/24 07:34 36.8 C 71 18 168/71 H 93 Room Air 06/18/24 02:29 36.6 C 78 18 149/81 H 96 Room Air 01/15/24 22:41 36.6 C 63 18 183/75 H 98 Room Air Laboratory Results Abnormal lab results 01/15/24 01/15/24 01/15/24 Range/Units 12:08 12:13 14:20 RBC 4.68 L (4.70-6.10) M/uL Hgb 13.4 L (14.0-18.0) g/dl Hct 40.8 L (42.0-52.0) % MPV (9.4-12.4) fL [place] # (Auto) 0.73 H (0.11-0.59) K/uL Sodium 134 L (136-145) mmol/L Glucose 152 H (70-99(Fasting)) mg/dl POC Glucose 156 H (70-99) mg/dl Hemoglobin A1c (4.5-5.6) % Troponin I High Sens 96.2 H* 99.9 H* (0-20) pg/ml 01/15/24 01/15/24 01/15/24 Range/Units 18:07 19:56 20:12 RBC (4.70-6.10) M/uL Hgb (14.0-18.0) g/dl Hct (42.0-52.0) % MPV (9.4-12.4) fL [place] # (Auto) (0.11-0.59) K/uL Sodium (136-145) mmol/L Glucose (70-99(Fasting)) mg/dl POC Glucose 115 H 116 H (70-99) mg/dl Hemoglobin A1c (4.5-5.6) % Troponin I High Sens 104.6 H* (0-20) pg/ml 01/16/24 01/16/24 01/16/24 Range/Units 00:03 01:47 05:44 RBC (4.70-6.10) M/uL Hgb (14.0-18.0) g/dl Hct (42.0-52.0) % MPV 13.2 H (9.4-12.4) fL [place] # (Auto) (0.11-0.59) K/uL Sodium (136-145) mmol/L Glucose 115 H (70-99(Fasting)) mg/dl POC Glucose 126 H 116 H (70-99) mg/dl Hemoglobin A1c 8.2 H (4.5-5.6) % Troponin I High Sens 123.1 H* (0-20) pg/ml Diagnostic Findings MRI brain - scattered anterior circulation L MCA strokes CTA - Significant L ICA stenosis, >70% on my review
[2024-01-16] MEDS: INSULIN ASPART PER UNIT CHARGE SC SCH (12:02)
--- NOTE | 2024-01-16 12:35 | Electrocardiogram Report ---
Test Reason : Blood Pressure : / mmHG Vent. Rate : 062 BPM Atrial Rate : 062 BPM P-R Int : 124 ms QRS Dur : 098 ms QT Int : 498 ms P-R-T Axes : 049 -18 044 degrees QTc Int : 505 ms Normal sinus rhythm Non-specific intra-ventricular conduction delay Minimal voltage criteria for LVH, may be normal variant ( R in aVL ) Septal infarct , age undetermined Prolonged QT Abnormal ECG No previous ECGs available Confirmed by Cecil Montague ([id number]) on 01/16/2024 12:34:41 PM Referred By: REFERRED SELF Confirmed By:Cecil Montague
--- NOTE | 2024-01-16 12:49 | Electrocardiogram Report ---
Test Reason : Blood Pressure : / mmHG Vent. Rate : 072 BPM Atrial Rate : 072 BPM P-R Int : 132 ms QRS Dur : 102 ms QT Int : 442 ms P-R-T Axes : 030 -30 046 degrees QTc Int : 483 ms Normal sinus rhythm Left axis deviation Incomplete right bundle branch block Moderate voltage criteria for LVH, may be normal variant Nonspecific ST abnormality Prolonged QT Abnormal ECG When compared with ECG of 15-JAN-2024 11:53, (unconfirmed) Criteria for Septal infarct are no longer Present Confirmed by Cecil Montague ([id number]) on 01/16/2024 12:48:58 PM Referred By: REFERRED SELF Confirmed By:Cecil Montague
--- NOTE | 2024-01-16 16:41 | Hospitalist Progress Note ---
Date of Service January 16, 2024 Assessment & Plan (1) Acute CVA (cerebrovascular accident): Plan: Acute CVA Left ICA stenosis Brain MRI: There are at least 4 subcentimeter foci of restricted diffusion scattered throughout the left-sided cortex as above. These are consistent with small foci of acute to subacute ischemia, and the distribution favors an embolic phenomenon. CTA head and neck: 1. 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 This extends from the carotid bifurcation to the skull base. Given findings of right temporal lobe encephalomalacia this may be chronic. Correlate clinically. 2. There is approximately 50% focal stenosis of the mid left common carotid artery. 3. There is 50-65% focal stenosis of the proximal left internal carotid artery. 4. There is moderate to severe focal stenosis of the left subclavian artery below the thoracic outlet. Note that this may place the patient at risk for steal phenomenon. 5. There is a 5 mm pleural-based nodule in the left upper lobe. Correlate with any prior outside imaging studies to assess for chronicity. If warranted this can be followed followed with a dedicated chest CT in 3-6 months time. 6. There is an 8 mm enhancing nodule in the right parotid gland. Nonemergent ultrasound is recommended in follow-up. [facility] neurologist consulted-Dr. Armando Rich Recommend to transition to aspirin 80 mg p.o. daily, Plavix 75 mg p.o. daily Change simvastatin to atorvastatin 80 mg p.o. daily Urgent vascular surgery evaluation for possible left ICA stent placement Discussed with Dr. Rich Explained vascular surgery services here cannot see the patient until next week and they do not perform carotid stent placements He will discuss with vascular surgery service at [facility], may need to be transferred to [facility] DEEDEE nodule in CTA neck: f/u CT chest in 3-6 months. Right parotid gland nodule: Will need ultrasound to further evaluate Other chronic medical conditions: HTN, HLD, hypothyroidism: Heparin for DVT prophylaxis Full code (2) Slurred speech: Plan Strokelike symptoms Patient coming along with slurring of speech and feeling poorly, which is improved by the time of bedside examination. Patient felt swallow eval, PT/OT/speech consult. A1c and lipid panel in AM. ECH Oand mri brain ordered. Will put him on aspirin 300 mg [place] daily until DAPT can be resumed p.o. Hold statin until p.o. medication can be resumed. Hold blood pressure medications today, will put him on as needed hydralazine with SBP goal greater than 180 mmHg today. Hydralazine to be given when blood pressure is greater than 190 mmHg, nursing to inform MD if they cannot use hydralazine due to given parameter when still blood pressure is greater than 190 mmHg. Abn CTA neck imaging, await neuro input for recs. DEEDEE nodule in CTA neck: f/u CT chest in 3-6 months. Other chronic medical conditions: HTN, HLD, hypothyroidism: Continue/resume home meds as and when able. When patient is able to take p.o. Currently n.p.o. Heparin for DVT prophylaxis Full code Admission and Anticipated Discharge Date Admission Date: January 15, 2024 Subjective Follow-up for acute CVA, etc. Seen resting in bed, sitting up, comfortable, not in distress Awake and alert, oriented x 3, answering all questions appropriately States he feels much better overall States speech is back to baseline, denies problems with swallowing, no other new neurologic deficits States he is mostly back to his baseline No chest pain, palpitations, dizziness, headache, nausea or vomiting No other new symptom Review of Systems Review of Systems: all noted and negative except for above Physical Exam Physical Exam: General- oriented x 3, not in distress, speaks in sentences with no effort or accessory muscle use Head- atraumatic Eyes- PERRL, EOMI, anicteric ENT- oropharynx clear Neck- supple, no JVD, no adenopathy, no thyromegaly; carotids +2/2, no bruits appreciated Lungs- clear to auscultation bilaterally, no rales/wheezes Heart- normal rate, regular rhythm; no murmur, no gallop, no rub appreciated Abdomen- normal bowel sounds, nondistended, soft, nontender, no masses or hepatosplenomegaly Extremities- no pretibial edema, no calf tenderness; peripheral pulses intact Neuro- alert, oriented x 3; CN 2-12 grossly intact; Positive left-sided weakness, contractures Skin- warm & dry Results & Data Results & Data Vital Signs (Past 12 Hours) Vital Signs Temp Pulse Pulse Resp BP Pulse Ox O2 Del Method 01/16/24 16:05 78 01/16/24 16:04 64 01/16/24 15:05 36.8 C 74 18 163/81 H 94 Room Air 01/16/24 10:46 36.8 C 79 18 156/75 H 96 Room Air 01/16/24 07:34 36.8 C 71 18 168/71 H 93 Room Air all noted and reviewed including below
--- NOTE | 2024-01-16 17:19 | Discharge Summary ---
Discharge Summary Date of Service January 16, 2024 Principal Dx & Hospital Course #1 = Principal Diagnosis (1) Acute CVA (cerebrovascular accident): Acute CVA Left ICA stenosis Brain MRI: There are at least 4 subcentimeter foci of restricted diffusion scattered throughout the left-sided cortex as above. These are consistent with small foci of acute to subacute ischemia, and the distribution favors an embolic phenomenon. CTA head and neck: 1. 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 This extends from the carotid bifurcation to the skull base. Given findings of right temporal lobe encephalomalacia this may be chronic. Correlate clinically. 2. There is approximately 50% focal stenosis of the mid left common carotid artery. 3. There is 50-65% focal stenosis of the proximal left internal carotid artery. 4. There is moderate to severe focal stenosis of the left subclavian artery below the thoracic outlet. Note that this may place the patient at risk for steal phenomenon. 5. There is a 5 mm pleural-based nodule in the left upper lobe. Correlate with any prior outside imaging studies to assess for chronicity. If warranted this can be followed followed with a dedicated chest CT in 3-6 months time. 6. There is an 8 mm enhancing nodule in the right parotid gland. Nonemergent ultrasound is recommended in follow-up. [facility] neurologist consulted-Dr. Armando Rcih Recommend to transition to aspirin 80 mg p.o. daily, Plavix 75 mg p.o. daily Change simvastatin to atorvastatin 80 mg p.o. daily Urgent vascular surgery evaluation for possible left ICA stent placement Discussed with Dr. Rich Explained vascular surgery services here cannot see the patient until next week and they do not perform carotid stent placements He will discuss with vascular surgery service at [facility], may need to be transferred to [facility] Abnormal CT findings The thyroid gland is enlarged and heterogeneous. There is an 8 mm enhancing nodule within the right parotid gland. Will need ultrasound to further evaluate DEEDEE nodule in CTA neck: f/u CT chest in 3-6 months. Other chronic medical conditions: HTN, HLD, hypothyroidism: Heparin for DVT prophylaxis Full code (2) Slurred speech: Plan Strokelike symptoms Patient coming along with slurring of speech and feeling poorly, which is improved by the time of bedside examination. Patient felt swallow eval, PT/OT/speech consult. A1c and lipid panel in AM. [facility] Oand mri brain ordered. Will put him on aspirin 300 mg CO daily until DAPT can be resumed p.o. Hold statin until p.o. medication can be resumed. Hold blood pressure medications today, will put him on as needed hydralazine with SBP goal greater than 180 mmHg today. Hydralazine to be given when blood pressure is greater than 190 mmHg, nursing to inform MD if they cannot use hydralazine due to given parameter when still blood pressure is greater than 190 mmHg. Abn CTA neck imaging, await neuro input for recs. DEEDEE nodule in CTA neck: f/u CT chest in 3-6 months. Other chronic medical conditions: HTN, HLD, hypothyroidism: Continue/resume home meds as and when able. When patient is able to take p.o. Currently n.p.o. Heparin for DVT prophylaxis Full code Notes For Next Care Provider The thyroid gland is enlarged and heterogeneous. There is an 8 mm enhancing nodule within the right parotid gland. Will need ultrasound to further evaluate Please order repeat CT chest in 3 months to reevaluate lung nodule. Please see assessment and plan for further details. Medication Changes From Visit Please see assessment and plan below Admission HPI Per Admitting Provider 68-year-old male with PMH of T2DM, hyperthyroidism, HLD, HTN presented to the ED with complaint of strokelike symptoms. Patient has a history of CVA affecting left side, Graves' disease. He comes in with feeling poorly starting this a.m., could not swallow/could not talk/slurring of speech. Per EMS his slurring of his speech improved in the route to the hospital. He denies any new focal weakness of his arms and limbs. 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 Denied any numbness or tingling. Patient denies any fever/cough/sore throat/chest pain/belly pain/acute changes in his bowel or bladder habits. Patient reports improvement in his symptoms significantly including slurring of speech. Patient reports being chronic smoker, reports smoking currently half packs in a week, denies alcohol use and recreational drug use. Full code, power of riveter hand patient's son Matti. Medications revieiwed with patient and her sister at bedside in detail. Plan of care discussed with patient and his sister and son at bedside in detail. They voiced understanding and were agreeable to plan of care. Admission Exam Per Admitting Provider GENERAL: Alert and oriented x3. NAD, on RA. HEENT: No pallor, no icterus. Pupils equal, round and reactive to light. Oral mucosa moist. NECK: No JVD, no neck masses. HEART: S1 and S2 heard. Regular rate and rhythm. No murmur, no gallop. RESPIRATORY SYSTEM: Normal AP diameter. No accessory muscle use. No wheezing, no crackles. ABDOMEN: Soft, bowel sounds present, nontender, no distention. CENTRAL NERVOUS SYSTEM: Speech is clear. Obeys simple commands. Moves extremities. left paresis noted. lue contracture noted. EXTREMITIES: No edema, no erythema seen. Discharge Exam General- oriented x 3, not in distress, speaks in sentences with no effort or accessory muscle use Head- atraumatic Eyes- PERRL, EOMI, anicteric ENT- oropharynx clear Neck- supple, no JVD, no adenopathy, no thyromegaly; carotids +2/2, no bruits appreciated Lungs- clear to auscultation bilaterally, no rales/wheezes Heart- normal rate, regular rhythm; no murmur, no gallop, no rub appreciated Abdomen- normal bowel sounds, nondistended, soft, nontender, no masses or hepatosplenomegaly Extremities- no pretibial edema, no calf tenderness; peripheral pulses intact Neuro- alert, oriented x 3; CN 2-12 grossly intact; Positive left-sided weakness, contractures Skin- warm & dry Updated Medication List Medication Instructions Recorded Confirmed Type citalopram 20 mg tablet 20 mg PO QAM 10/23/20 01/15/24 History levetiracetam 500 mg tablet 500 mg PO QAM 10/23/20 01/15/24 History lisinopril 5 mg tablet 5 mg PO QPM 10/23/20 01/15/24 History metformin 500 mg tablet 500 mg PO QPM 10/23/20 01/15/24 History multivit with min-folic 1 tab PO QAM 10/23/20 01/15/24 History acid-lutein 400 mcg-250 mcg chewable tablet (Centrum Silver) methimazole 5 mg tablet 15 mg PO QAM 01/15/24 01/15/24 History aspirin 81 mg tablet,delayed 81 mg PO QAM 30 days #30 tabs 01/16/24 Rx release atorvastatin 40 mg tablet 80 mg (2 x 40 mg) PO QAM 30 days 01/16/24 Rx #60 tabs clopidogrel 75 mg tablet 75 mg PO QAM 30 days #30 tabs 01/16/24 Rx Hospital Stay Data Consultations 01/15/24 13:13 ED Decision to Admit Stat 01/15/24 14:53 Consult Neurology Routine 01/15/24 19:33 Consult Vascular Surgery Routine Diagnostic Imagining Performed Laboratory Results WBC 10.17 K/ul (4.8-10.8) 01/16/24 01:47 RBC 4.99 M/uL (4.70-6.10) 01/16/24 01:47 Hgb 14.5 g/dl (14.0-18.0) 01/16/24 01:47 Hct 43.0 % (42.0-52.0) 01/16/24 01:47 MCV 86.2 fL (80.0-100.0) 01/16/24 01:47 MCH 29.1 pg (25.0-34.0) 01/16/24 01:47 MCHC 33.7 g/dL (32.0-36.0) 01/16/24 01:47 RDW Std Deviation 41.2 fL (36.4-46.3) 01/16/24 01:47 RDW Coeff of Lesly 13.3 % (11.5-14.5) 01/16/24 01:47 Plt Count 281 K/uL (130-400) 01/16/24 01:47 MPV 13.2 fL (9.4-12.4) H 01/16/24 01:47 Immature Gran % (Auto) 0.3 % 01/15/24 12:08 Neut % (Auto) 67.9 % 01/15/24 12:08 Lymph % (Auto) 21.2 % 01/15/24 12:08 [place] % (Auto) 7.7 % 01/15/24 12:08 Eos % (Auto) 2.1 % 01/15/24 12:08 Baso % (Auto) 0.8 % 01/15/24 12:08 Neut # (Auto) 6.44 K/uL (1.40-6.50) 01/15/24 12:08 Lymph # (Auto) 2.01 K/uL (1.20-3.40) 01/15/24 12:08 [place] # (Auto) 0.73 K/uL (0.11-0.59) H 01/15/24 12:08 Eos # (Auto) 0.20 K/uL (0.00-0.50) 01/15/24 12:08 Baso # (Auto) 0.08 K/uL (0.00-0.20) 01/15/24 12:08 Immature Gran # (Auto) 0.03 K/uL (0.01-0.20) 01/15/24 12:08 PT 11.1 Seconds (9.0-12.0) 01/15/24 12:08 INR 1.0 (0.9-1.1) 01/15/24 12:08 APTT 28 Seconds (21-31) 01/15/24 12:08 PTT Ratio 1.0 01/15/24 12:08 Sodium 136 mmol/L (136-145) 01/16/24 01:47 Potassium 4.0 mmol/L (3.5-5.1) 01/16/24 01:47 Chloride 105 mmol/L (98-107) 01/16/24 01:47 Carbon Dioxide 23 mmol/L (21-32) 01/16/24 01:47 Anion Gap 8 (3-11) 01/16/24 01:47 BUN 11 mg/dl (6-23) 01/16/24 01:47 Creatinine 0.79 mg/dl (0.6-1.4) 01/16/24 01:47 Est Cr Clr Drug Dosing 81.3 ml/min 01/16/24 01:47 Est GFR ( Amer) 105.4 ml/min 01/16/24 01:47 Est GFR (Non-Af Amer) 91.0 ml/min 01/16/24 01:47 BUN/Creatinine Ratio 13.9 (10-20) 01/16/24 01:47 Glucose 115 mg/dl (70-99(Fasting)) H 01/16/24 01:47 POC Glucose 107 mg/dl (70-99) H 01/16/24 16:08 Estimat Average Glucose 189 mg/dl 01/16/24 01:47 Hemoglobin A1c 8.2 % (4.5-5.6) H 01/16/24 01:47 Calcium 9.8 mg/dl (8.6-10.3) 01/16/24 01:47 Phosphorus 3.3 mg/dl (2.5-4.9) 01/16/24 01:47 Magnesium 1.8 mg/dl (1.7-2.4) 01/16/24 01:47 Total Bilirubin 0.4 mg/dl (0.2-1.0) 01/15/24 12:08 AST 14 U/L (13-39) 01/15/24 12:08 ALT 13 U/L (7-52) 01/15/24 12:08 Alkaline Phosphatase 87 U/L (34-104) 01/15/24 12:08 Troponin I High Sens 123.1 pg/ml (0-20) H* 01/16/24 01:47 Total Protein 7.2 gm/dl (6.0-8.3) 01/15/24 12:08 Albumin 3.4 gm/dl (3.4-5.0) 01/15/24 12:08 Globulin 3.8 gm/dl (2.5-4.0) 01/15/24 12:08 Albumin/Globulin Ratio 0.9 (0.9-2) 01/15/24 12:08 Triglycerides 123 mg/dl (0-150) 01/16/24 01:47 Cholesterol 119 mg/dl (0-200) 01/16/24 01:47 LDL Cholesterol, Calc 69 mg/dl 01/16/24 01:47 VLDL Cholesterol, Calc 25 mg/dl (0-30) 01/16/24 01:47 HDL Cholesterol 25 mg/dl 01/16/24 01:47 Cholesterol/HDL Ratio 4.8 (0-5) 01/16/24 01:47 Impressions Chest X-Ray 01/15/24 11:52 XR chest 1V portable CLINICAL HISTORY: neuro deficit, acute stroke suspected TECHNIQUE: Single frontal radiograph of the chest was obtained. Comparison: None available at the time of this dictation. FINDINGS: No lines and tubes are seen. Calcified aortic knob is seen. The lungs are clear. No evidence of pleural effusion or pneumothorax. IMPRESSION: No acute chest disease. ACT 112: Negative or not required by law. Electronically signed by: Jason Garvey M.D. 01/15/2024 1:[address] 01/15/24 11:52 CT head/brain wo con CLINICAL HISTORY: 68 years-old Male with neuro deficit, acute stroke suspected. Acute strokelike symptoms TECHNIQUE: Multiple axial CT images of the head were obtained without contrast. A dose lowering technique was utilized adhering to the principles of ALARA. COMPARISON: CTA head and neck of same day FINDINGS: No acute intracranial hemorrhage, midline shift, intracranial mass, hydrocephalus, territorial ischemia or abnormal extra-axial collection. Involutional changes with chronic microvascular ischemic disease. There is a large area of encephalomalacia compatible with a chronic right MCA territorial infarct. Ex vacuo ventricular megaly the right lateral ventricle. Additional encephalomalacia involve the bilateral parieto-occipital lobes. The calvarium is intact. The paranasal sinuses, mastoid air cells, and middle ear cavities are clear. IMPRESSION: 1. No acute intracranial hemorrhage or midline shift. 2. Encephalomalacia from chronic infarcts including a large chronic right MCA territorial infarct. ACT 112: Negative or not required by law. The above report was generated using voice recognition software. It may contain grammatical, syntax or spelling errors. Electronically signed by: Brian Mesa M.D. 01/15/2024 12:31 PM Head CTA 01/15/24 11:52 CT angio head w con CLINICAL HISTORY: neuro deficit, acute stroke suspected TECHNIQUE: CT angiography of the head was performed following intravenous administration of iodinated contrast. Coronal and sagittal MIPS were obtained from the axial data set and were submitted for review. Automated dose lowering techniques and/or adjustment according to patient size were utilized for this examination. All measurements were calculated based on NASCET criteria. CT DOSE: 1191.73 mGy.cm Comparison: Comparison is made to CT head 01/15/2024 FINDINGS: CTA Head: The anterior and posterior cerebral circulations are patent. Right- sided carotid circulation is supplied from the left. IMPRESSION: No occlusion, hemodynamically significant stenosis, aneurysm, dissection, or arteriovenous malformation in the major intracranial arteries. The right sided anterior and middle cerebral arteries are supplied from the left carotid artery. Encephalomalacia from old infarct is seen on the right. Assessment of stenosis of the internal carotid arteries is based on NASCET criteria. ACT 112: Negative or not required by law. Electronically signed by: Jason Garvey M.D. 01/15/2024 12:36 PM Neck CTA 01/15/24 11:52 CT ANGIOGRAM OF THE NECK CLINICAL HISTORY: Neurological deficit. Stroke like symptoms. Slurred speech. COMPARISON STUDY: No priors. TECHNIQUE: Following the IV administration of 120 of Optiray 320, CT angiogram of the neck was performed from the aortic arch to the skull base. Images are reviewed in the axial, sagittal, and coronal planes. 3-D MIPS images are created and assessed. IV contrast was administered without complication. All measurements were calculated based on NASCET criteria. A dose lowering technique was utilized adhering to the principles of ALARA. FINDINGS: Thoracic aorta: There is atherosclerotic calcification of the thoracic aorta. Visualized portions of the thoracic aorta are normal in caliber. The aortic arch demonstrates standard 3-vessel anatomy. Right carotid arterial system: The right common carotid artery is widely patent noting atherosclerotic plaque and irregularity. The left external carotid artery is widely patent. There is complete thrombosis at the origin of the right internal carotid artery. The vessel is thrombosed to the skull base. Left carotid arterial system: The left common carotid artery is patent noting advanced atherosclerotic plaque and irregularity. There is less than 50% focal stenosis of the mid left common carotid artery seen on axial image #179. The vessels otherwise widely patent. There is advanced atherosclerotic calcification in the left carotid bulb. This causes approximately 50-65% focal stenosis at the origin of the left internal carotid artery seen on axial image #244. The mid to distal left internal carotid artery is widely patent, as is the left external carotid artery. Vertebral arteries: There is mild focal stenosis at the origin of the right vertebral artery. The vertebral arteries are otherwise widely patent bilaterally noted right-sided dominance. Subclavian arteries: There is moderate to high-grade focal stenosis of the left subclavian artery below the thoracic inlet seen on axial image #76. The subclavian arteries are otherwise widely patent bilaterally. Intracranial vasculature: There is trace reconstitution of flow within the distal right internal carotid artery below the [place] of [place] via retrograde flow. Intracranial vessels at the skull base are otherwise widely patent. Jugular veins: Patent bilaterally. Brain parenchyma: Right temporal lobe encephalomalacia is partially imaged. Lung apices: There is a 5 mm pleural-based nodule in the left upper lobe seen on image #14. Partially visualized upper lobe lung parenchyma otherwise appears clear. Soft tissues: The visualized pharyngeal soft tissues are normal in appearance noting angiographic phase technique. The oropharyngeal airway appears widely patent. The thyroid gland is enlarged and heterogeneous. There is an 8 mm enhancing nodule within the right parotid gland. The salivary glands are otherwise normal in appearance. No cervical lymphadenopathy is seen. Skeletal structures: The skeletal structures are osteopenic. The visualized calvarium at the skull base appears intact. The imaged cervical spine is maintained noting mild spondylosis. Sinuses and mastoids: There is mild mucosal thickening within the ethmoid sinuses on the right maxillary antrum. The mastoid air cells are well pneumatized. IMPRESSION: 1. 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 This extends from the carotid bifurcation to the skull base. Given findings of right temporal lobe encephalomalacia this may be chronic. Correlate clinically. 2. There is approximately 50% focal stenosis of the mid left common carotid artery. 3. There is 50-65% focal stenosis of the proximal left internal carotid artery. 4. There is moderate to severe focal stenosis of the left subclavian artery below the thoracic outlet. Note that this may place the patient at risk for steal phenomenon. 5. There is a 5 mm pleural-based nodule in the left upper lobe. Correlate with any prior outside imaging studies to assess for chronicity. If warranted this can be followed followed with a dedicated chest CT in 3-6 months time. 6. There is an 8 mm enhancing nodule in the right parotid gland. Nonemergent ultrasound is recommended in follow-up. ACT 112: Negative or not required by law. Electronically signed by: Jose Chester M.D. 01/15/2024 12:22 PM Brain MRI 01/15/24 15:04 MRI OF THE BRAIN COMBO CLINICAL HISTORY: Slurred speech. Dysphagia. Stroke like symptoms. COMPARISON STUDY: CT of the brain performed the same day 01/15/2024. TECHNIQUE: MRI of the brain was performed utilizing various T1 and T2-weighted sequences in the axial, sagittal, and coronal planes. Contrast-enhanced sequences were acquired following the administration of 7 cc of Gadavist. FINDINGS: Brain parenchyma: There are at least 4 subcentimeter foci of restricted diffusion identified in the left frontal, temporal, and parietal lobe cortex consistent with foci of acute to subacute ischemia. 1 extravasation is nonspecific postcontrast enhancement. No foci of restricted diffusion are seen within the right hemisphere. There is no hemorrhage or mass effect. Right MCA territory encephalomalacia is consistent with a remote infarct. There are foci of hemosiderin deposition within the right MCA territory, likely related to old blood products. There is [id number] microcatheter hepatic change. No enhancing mass lesion is identified on the postcontrast images. No extra-axial fluid collection is seen. The cerebellar tonsils are normal in configuration. Ventricles, sulci, and cisterns: Prominent secondary to involutional change. There is ex vacuo dilatation of the right lateral ventricle. Pituitary and sella: Unremarkable. Intracranial vasculature: There is loss of the right internal carotid artery flow-void at the skull base 3 there are many phleboliths the skull base are maintained. Orbits: The bony orbits are grossly intact. Orbital contents are normal in appearance noting bilateral ocular lens implants. Sinuses and mastoids: Mild mucosal thickening is noted within the ethmoid and frontal sinuses. The mastoid air cells are clear. Calvarium: Unremarkable. Cervical cord: Partially visualized cervical spinal cord is normal in morphology and signal intensity. IMPRESSION: 1. There are at least 4 subcentimeter foci of restricted diffusion scattered thr oughout the left-sided cortex as above. These are consistent with small foci of acute to subacute ischemia, and the distribution favors an embolic phenomenon. 2. There is no hemorrhage or mass effect. 3. There is loss of the right internal carotid artery flow void at the skull base and right MCA territory encephalomalacia consistent with a remote stroke. 4. Additional findings as above. ACT 112: Negative or not required by law. Electronically signed by: Jose Chester M.D. 01/15/2024 6:23 PM Pending Results Patient Have Any Pending Studies at Discharge: Yes Discharge Instructions Given to Patient (Per Discharging Provider) Please see accompanying hospital discharge summary for further details. The thyroid gland is enlarged and heterogeneous. There is an 8 mm enhancing nodule within the right parotid gland. Will need ultrasound to further evaluate Follow-up CAT scan in 3 months to reevaluate lung nodule Total Time Total Time Spent Total Time Spent (In Minutes): 60 minutes
[2024-01-16] MEDS: ATORVASTATIN 40 MG TAB PO SCH (17:26)
[2024-01-16] MEDS: CLOPIDOGREL BISULFATE 75 MG TAB PO SCH (17:26)
[2024-01-17 06:49] LABS: Basophils # (auto) 0.07 K/uL (0.00-0.20); Eosinophils # (auto) 0.11 K/uL (0.00-0.50); Eosinophils % (auto) 1.6 %; Hematocrit (blood only) 43.3 % (42.0-52.0); Hemoglobin 14.4 g/dl (14.0-18.0); Immature Granulocytes # (auto) 0.01 K/uL (0.01-0.20); Immature Granulocytes % (auto) 0.1 %; Lymphocytes # (auto) 2.22 K/uL (1.20-3.40); Lymphocytes % (auto) 31.4 %; Mean Corpuscular Hemoglobin 28.6 pg (25.0-34.0); Mean Corpuscular Hgb Conc 33.3 g/dL (32.0-36.0); Mean Corpuscular Volume 85.9 fL (80.0-100.0); Mean Platelet Volume 12.3 fL (9.4-12.4); Monocytes # (auto) 0.66 K/uL (0.11-0.59); Monocytes % (auto) 9.3 %; Neutrophils % (auto) 56.6 %; Platelet Count 274 K/uL (130-400); RDW Coefficient of Variation 13.4 % (11.5-14.5); RDW Standard Deviation 41.7 fL (36.4-46.3); Red Blood Count 5.04 M/uL (4.70-6.10); White Blood Count 7.07 K/ul (4.8-10.8)
[2024-01-17 07:10] LABS: BUN Creatinine Ratio 20.5 (10-20); Calcium 9.6 mg/dl (8.6-10.3); Creatinine Clr Calc Pharmacy 91.2 ml/min; Est GFR (African American) 103.3 ml/min; Est GFR (Non-African American) 89.2 ml/min; Potassium 4.1 mmol/L (3.5-5.1)
[2024-01-17] MEDS: ASPIRIN 81 MG ECTAB PO SCH (08:04)
--- NOTE | 2024-01-17 14:32 | Discharge Summary ---
Date of Service January 17, 2024 Admission HPI Per Admitting Provider 68-year-old male with PMH of T2DM, hyperthyroidism, HLD, HTN presented to the ED with complaint of strokelike symptoms. Patient has a history of CVA affecting left side, Graves' disease. He comes in with feeling poorly starting this a.m., could not swallow/could not talk/slurring of speech. Per EMS his slurring of his speech improved in the route to the hospital. He denies any new focal weakness of his arms and limbs. 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 Denied any numbness or tingling. Patient denies any fever/cough/sore throat/chest pain/belly pain/acute changes in his bowel or bladder habits. Patient reports improvement in his symptoms significantly including slurring of speech. Patient reports being chronic smoker, reports smoking currently half packs in a week, denies alcohol use and recreational drug use. 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 Medications revieiwed with patient and her sister at bedside in detail. Plan of care discussed with patient and his sister and son at bedside in detail. They voiced understanding and were agreeable to plan of care. Admission Exam Per Admitting Provider GENERAL: Alert and oriented x3. NAD, on RA. HEENT: No pallor, no icterus. Pupils equal, round and reactive to light. Oral mucosa moist. NECK: No JVD, no neck masses. HEART: S1 and S2 heard. Regular rate and rhythm. No murmur, no gallop. RESPIRATORY SYSTEM: Normal AP diameter. No accessory muscle use. No wheezing, no crackles. ABDOMEN: Soft, bowel sounds present, nontender, no distention. CENTRAL NERVOUS SYSTEM: Speech is clear. Obeys simple commands. Moves extremities. left paresis noted. lue contracture noted. EXTREMITIES: No edema, no erythema seen. Principal Diagnosis Acute CVA Left ICA stenosis Discharge Exam Constitutional: Alert oriented x 3; not in distress. Respiratory: normal respiratory effort, lungs clear to auscultation, no wheeze, rales, rhonchi. Normal insp/exp effort, no accessory muscle use Cardiovascular: RRR, no murmur, no edema Vessels: no JVD or carotid bruit Chest: normal inspection of chest Abdomen: normal bowel sounds, soft, nontender, no hepatosplenomegaly Musculoskeletal: no cyanosis or clubbing, extremities motor strength 5/5 Skin: no rashes, warm and dry normal turgor Neurologic: PERRL, EOMI, accommodation nl, no face palsy,. Left paresis noted. Left upper extremity contracture Discharge Data Allergies Allergy/AdvReac Type Severity Reaction Status Date / Time No Known Allergies Allergy Verified 01/15/24 13:34 Consultations 01/15/24 13:13 ED Decision to Admit Stat 01/15/24 14:53 Consult Neurology Routine 01/15/24 19:33 Consult Vascular Surgery Routine 01/16/24 17:32 Burn CD for patient Stat Ordered Studies 01/15/24 11:52 CT angio head w con Stat CT angio neck with con Stat CT head/brain wo con Stat 01/15/24 15:04 MRI Brain [MR brain wo/w con] Routine Hospital Course (1) Acute CVA (cerebrovascular accident): (2) Slurred speech: Plan Patient presented to the hospital with transient slurring of speech. Acute CVA Left ICA stenosis Brain MRI: There are at least 4 subcentimeter foci of restricted diffusion scattered throughout the left-sided cortex as above. These are consistent with small foci of acute to subacute ischemia, and the distribution favors an embolic phenomenon. CTA head and neck: 1. 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 This extends from the carotid bifurcation to the skull base. Given findings of right temporal lobe encephalomalacia this may be chronic. Correlate clinically. 2. There is approximately 50% focal stenosis of the mid left common carotid artery. 3. There is 50-65% focal stenosis of the proximal left internal carotid artery. 4. There is moderate to severe focal stenosis of the left subclavian artery below the thoracic outlet. Note that this may place the patient at risk for steal phenomenon. 5. There is a 5 mm pleural-based nodule in the left upper lobe. Correlate with any prior outside imaging studies to assess for chronicity. If warranted this can be followed followed with a dedicated chest CT in 3-6 months time. 6. There is an 8 mm enhancing nodule in the right parotid gland. Nonemergent ultrasound is recommended in follow-up. [facility] neurologist consulted-Dr. Armando Rich Recommend to transition to aspirin 80 mg p.o. daily, Plavix 75 mg p.o. daily Change simvastatin to atorvastatin 80 mg p.o. daily Urgent vascular surgery evaluation for possible left ICA stent placement Discussion was done with neurology at [facility]; patient was transferred for vascular surgery intervention for left ICA stenosis. Patient was discharged to [facility] Abnormal CT findings The thyroid gland is enlarged and heterogeneous. There is an 8 mm enhancing nodule within the right parotid gland. Will need ultrasound to further evaluate DEEDEE nodule in CTA neck: f/u CT chest in 3-6 months. Please note the above document was generated using voice recognition software. It may contain grammatical, syntax or spelling errors. Any formal questions or concerns about the content, text or information contained within the body of this dictation should be directly addressed to the provider for clarification Total Time Total Time Spent Total Time Spent (In Minutes): 35 Total Time Includes: Examination of the Patient, Discharge Planning, Medication Reconciliation, Communication With Other Providers and Other Discharge Plan Discharge Items Patient Disposition: Transfer Acute Care Hospital Reason For Visit: stroke like s/s Discharge Diagnosis: Acute CVA L ICA stenosis Activity: As commented below Activity Comment: Always with assistance, fall precaution Lifting: Wait until after follow-up appointment Exercise/Sports: Wait until after follow-up appointment Non-emergency contact: Primary Care Provider Call non-emergency contact if: you have any medication questions, your symptoms worsen, your pain is not controlled, your pain is worsening, your pain is unusual for you, your pain is concerning for you and you have a fever Follow-up/Referrals: Darinel Rajput [Primary Care Provider] - Diet: Carb Consistent or DM2 and Heart Healthy Addtl Attending Provider Instructions: Please see accompanying hospital discharge summary for further details. The thyroid gland is enlarged and heterogeneous. There is an 8 mm enhancing nodule within the right parotid gland. Will need ultrasound to further evaluate Follow-up CAT scan in 3 months to reevaluate lung nodule Pending Studies at Discharge: Yes Studies:: Parotid gland ultrasound Stand-Alone Forms: My [place] Skilled Items Patient informed of condition?: Yes DNR: No Discharge Level of Care: Other Communicable Disease: No Discharge Prognosis: Stable Lines: Peripheral IV Urinary Catheter: No Medications and DC Order Prescriptions: New atorvastatin 40 mg Tablet 80 mg PO QAM 30 Days Qty: 60 0RF clopidogrel 75 mg Tablet 75 mg PO QAM 30 Days Qty: 30 0RF aspirin 81 mg Tablet,Delayed Release (Dr/Ec) 81 mg PO QAM 30 Days Qty: 30 1RF Continued levetiracetam 500 mg tablet 500 mg PO QAM citalopram 20 mg tablet 20 mg PO QAM Centrum Silver 400-250 mcg tablet,chewable 1 tab PO QAM methimazole 5 mg tablet 15 mg PO QAM Held lisinopril 5 mg tablet 5 mg PO QPM Hold Instructions: Resume on 01/22/24. metformin 500 mg tablet 500 mg PO QPM Hold Instructions: Resume on 01/22/24. Discontinued simvastatin 40 mg tablet 40 mg PO HS aspirin 325 mg tablet 325 mg PO QAM Discharge Orders: Discharge Order (Routine); Ordered 01/17/24 Ordered By: Armaan Thomason/Other Patient Handouts: High Blood Sugar (Hyperglycemia), Hypoglycemia (Low Blood Sugar), Managing Type 2 Diabetes Admission Data Admit Date/Time: 01/15/24 14:58 Attending Provider: Armaan Estevez Admit Provider: Dorian Davis Primary Care Provider: Darinel Rajput Other Providers: Dorian Davis; Armando Rich; Josep Warner Other Interventions: Discharge Summary Assessment (RN) Last Done: 01/17/24 12:39
--- NOTE | 2024-01-17 16:12 | Electrocardiogram Report ---
Test Reason : Blood Pressure : / mmHG Vent. Rate : 061 BPM Atrial Rate : 061 BPM P-R Int : 130 ms QRS Dur : 114 ms QT Int : 482 ms P-R-T Axes : 152 211 147 degrees QTc Int : 485 ms Suspect arm lead reversal, interpretation assumes no reversal Unusual P axis, possible ectopic atrial rhythm Right superior axis deviation T wave abnormality, consider inferior ischemia Abnormal ECG When compared with ECG of 16-JAN-2024 05:37, Ectopic atrial rhythm has replaced Sinus rhythm Questionable change in QRS axis Confirmed by Cecil Montague ([id number]) on 01/17/2024 4:12:16 PM Referred By: REFERRED SELF Confirmed By:Cecil Montague
--- NOTE | 2024-01-18 07:28 | Coding Query ---
CODING QUERY To promote full compliance with coding requirements relating to patient care, provider participation is requested in all cases of manager client support uncertainty. Please assist us with the question(s) below: Coding Question(s): Pt with prior hx of stroke admitted with slurred speech, stroke-like symptoms. MRI Brain/Imaging : Left internal carotid artery stenosis. Neuro consult stated acute stroke with left internal carotid artery stenosis. Seeking to clarify if the carotid artery stenosis was etiology for suspected embolic stroke. Please check below the phrase that describes the stroke. Pt transferred to other acute care hospital for carotid stenting. Thanks for your help! Jerzy Feliz [facility] Physician's Response(s): The Left Carotid Artery Occlusion caused the stroke Unknown etiology of stroke X Other: Please document: unable to determine Principal Diagnosis: "that condition established after study, to be chiefly responsible for occasioning the admission of the patient to the hospital for care." Co-Existing Principal Diagnosis: "when two or more diagnoses equally meet the criteria for principal diagnosis as determined by the circumstances of admission, diagnostic work up, and/or therapy provided, and the Alphabetic Index, Tabular List, or another coding guideline does not provide sequencing direction, any one of the diagnoses may be sequenced first." "When the physician has documented what appears to be a current diagnosis in the body of the record, but has not included the diagnosis in the final diagnostic statement, the physician should be asked whether the diagnosis should be added." (Source [facility]oding [facility] 2 QTR90. p3-4) JESSICA
== END 2024-01-17 12:41 | disposition short-term general hospital (02) | DRG 67 ==
LOC: ED 11:44 → 2E 14:58 → SUATTDRO 14:58 → 2E 18:34